=== PATIENT | female | born 1930 | race Caucasian/White ===

== ENCOUNTER → 2017-05-08 | Outpatient (CLI) | payer MEDICARE, OTHER ==
[~2017-05-08] MED LIST: AMITRIPTYLINE H25 M1 PO; ANTIVERT 25MG25 MG PO; BIO FREEZE TP; CELEBREX 200MG200 MG PO; CLOPIDOGREL PO; COZAAR 50MG50 MG/TAB PO; FLONASE NASAL S16 GM NS; GLUCOPHAGE500 MG/TAB PO; LASIX 40MG TABL40 MG PO; LEVOTHYROXINE0.1 MG PO; LEVOTHYROXINE0.2 MG PO; MIRAPEX1.5 MG PO; MUCINEX 60600 MG/TA1 PO; MVI PO; NEXIUM 40MG40 MG PO; NEXIUM40 MG PO; NORMODYNE200 MG PO; OGEN 0.625MG0.625 MG PO; PAMELOR 10MG10 MG PO; SEPTRA DS 8001 TAB PO; SINGULAIR10 MG PO; SYNTHROID0.125 MG/T PO; TYLENOL 500MG500 MG PO; ULTRAM 50MG TAB50 MG PO; VITA PULSE PO; ZITHROMAX 250M250 MG PO; ZOFRAN 4MG T4 MG/TAB PO; ZYRTEC 10MG10 MG PO; [UNRECOGNIZED DRUG - OTHER]
== END ==
LOC: COL.RAD 07:36
DX: K21.9 Gastro-esophageal reflux disease without esophagitis (principal); K44.9 Diaphragmatic hernia without obstruction or gangrene
CPT/HCPCS: A9541

== ENCOUNTER 2020-03-12 18:09 | Emergency (ER) | payer MEDICARE ==
[~2020-03-12] VITALS: Ht 165.1 cm; Wt 100.0 kg
[2020-03-12 18:13] VITALS: TEMP 99.1
[2020-03-12] MEDS ORDERED: LIDODERM 5% PATC1 EA TP (19:19)
[2020-03-12 20:00] VITALS: BP 164/82; PULSE 79
== END 2020-03-12 20:00 | disposition home or self-care (01) ==
LOC: COL.ER 18:09
DX: M25.511 Pain in right shoulder (principal); Z90.710 Acquired absence of both cervix and uterus; Z88.1 Allergy status to other antibiotic agents; Z88.6 Allergy status to analgesic agent; Z88.8 Allergy status to other drugs, medicaments and biological substances; Z79.891 Long term (current) use of opiate analgesic; Z79.84 Long term (current) use of oral hypoglycemic drugs; Z79.890 Hormone replacement therapy

== ENCOUNTER 2021-03-20 03:45 | Inpatient (IN) | payer MEDICARE, OTHER ==
[~2021-03-20] VITALS: Ht 165.1 cm; Wt 87.9 kg
[~2021-03-20 03:45] MED LIST changes: +LIDODERM 5% PATC1 EA TP
[2021-03-20 04:24] LABS: COLLECTION METHOD CLEAN CATCH
[2021-03-20 04:45] LABS: ALBUMIN 3.5 gm/dL (3.4-4.8); BILIRUBIN,TOTAL 0.6 mg/dL (0.2-1.2); CALCIUM 9.2 mg/dL (8.4-10.2); CREATININE, serum 1.39 mg/dL (0.57-1.11); POTASSIUM 4.2 mmol/L (3.5-4.5); TOTAL PROTEIN 7.2 gm/dL (6.2-8.1)
[2021-03-20 04:46] LABS: BASO # 0.1 K/mm3 (0.0-0.2); BASO % 0.6 % (0.0-2.0); EOS # 0.2 K/mm3 (0.0-0.7); EOS % 2.1 % (0.0-4.0); GRAN # 7.9 K/mm3 (1.4-6.5); GRAN % 82.5 % (42.2-75.2); HEMOGLOBIN 10.6 g/dl (12.5-16.0); LYMPH # 0.8 K/mm3 (1.2-3.4); LYMPH % 8.6 % (20.0-51.0); MEAN CELL VOLUME 88 fl (80.0-100.0); MEAN CORPUSCULAR HEMOGLOBIN 29 pg (27-31); MEAN CORPUSCULAR HGB CONC 33 g/dl (33.0-37.0); MEAN PLATELET VOLUME 10.3 fl (7.4-10.4); MONO # 0.6 K/mm3 (0.1-0.6); MONO % 5.9 % (1.7-9.3); PLATELET COUNT 286 K/mm3 (130-400); RED BLOOD COUNT 3.64 M/mm3 (4.10-5.30); REDCELL DISTRIBUTION WIDTH-CV 14.5 % (11.5-14.5)
[2021-03-20 04:48] LABS: HEMATOCRIT 31.9 % (37.0-47.0)
[2021-03-20 04:51] LABS: TROPONIN-I 0.014 ng/mL (0.00-0.033)
[2021-03-20 04:55] LABS: BUDDING YEAST Present (NOT PRESENT); PH 8 (5-8); SQUAMOUS EPITHELIAL 0-2 /hpf (0-10); URINE APPEARANCE Hazy (CLEAR/HAZY); URINE BACTERIA Many /hpf (NONE SEEN); URINE BILIRUBIN Negative (NEGATIVE); URINE BLOOD Negative (NEGATIVE); URINE COLOR Straw (YELLOW); URINE GLUCOSE Negative (NEGATIVE); URINE KETONE Negative (NEGATIVE); URINE LEUKOCYTE ESTERASE 2+ (NEGATIVE); URINE NITRATE Negative (NEGATIVE); URINE PROTEIN(semi-quant) 1+ (NEGATIVE); URINE UROBILINOGEN Negative (NEGATIVE)
--- NOTE | 2021-03-20 06:15 | NUR ---
Up from ER at this time, Vitals taken, o2 at 3L/nc with sats 100%, states has a headache, alert/oriented, Jennyfer PA in room, talking with patient.
[2021-03-20] MEDS ORDERED: INCRUSE EL62.5 MCG/A IH (06:16)
[2021-03-20] MEDS ORDERED: 00186-0370-20 IH ×2 (06:16→08:38)
[2021-03-20 06:18] VITALS: BP 192/75; PULSE 77; TEMP 97.9
[2021-03-20] MEDS ORDERED: PROTONIX 40MG T40 MG PO (06:19)
--- NOTE | 2021-03-20 07:00 | NUR ---
Report received from BETH Kay. PT in bed resting, doing well, will conitnue to monitor.
[2021-03-20 08:00] VITALS: BP 182/65; PULSE 76; TEMP 98.9
[2021-03-20] MEDS ORDERED: GLUCOPHAGE1000 MG PO (08:35)
[2021-03-20] MEDS ORDERED: ROXICODONE 55 MG/TAB PO (08:36)
[2021-03-20] MEDS ORDERED: TRIAM OI 0.1 80 TOP (08:36)
[2021-03-20] MEDS ORDERED: GLUCOTROL XL5 MG/TAB PO (08:37)
[2021-03-20] MEDS ORDERED: COZAAR 25MG25 MG/TAB PO (08:38)
--- NOTE | 2021-03-20 09:36 | NUR ---
Initial visit; Rosy states that she needs prayer and that she isn't ready to give up just yet. Criminal Justice Lawyer offered comfort, encouragement and prayer for Rosy and will follow up while she is our patient.
--- NOTE | 2021-03-20 09:56 | NUR ---
maintenance worker swimming pool met with patient to discuss discharge plan. Patient reports that she lives at home alone here in [place]. She reports that she is independent with her activities of daily living and utilizes both a walker and electric scooter to ambulate. She reports to having no oxygen needs at home, however is currently on 2-3L in room. PCP is Dr. Mathieu Coronel and she uses both [facility] through her insurance and [facility] pharmacy for medications with no cost difficulty. Patient reports that she does have a DPOA-HC established listing her 3 children, however [facility] ([phone]) is the closest. Patient reports that once she is medically ready, she would like to return home. Discharge plan: Home* pending PT/OT rec's
--- NOTE | 2021-03-20 10:00 | NUR ---
Assessment charted. Pt sleepy, able to arouse easily but falls asleep between disturbances. Did med rec per meds picked up and delivered from pharmacy. Denies needs, will conitnue to monitor.
[2021-03-20 12:00] VITALS: BP 153/57; PULSE 69; TEMP 98.2
[2021-03-20 15:18] LABS: ARTERIAL BLD GAS O2 SATURATION 96.5 % (92-100); ARTERIAL BLD GAS TCO2 CT 27.3; ARTERIAL BLOOD GAS BASE EXCESS 2.1 (-2-2); ARTERIAL BLOOD GAS HCO3 26.2 meq/L (22-26); ARTERIAL BLOOD GAS PCO2 38.5 mmHg (35-45); ARTERIAL BLOOD GAS pH 7.45 (7.35-7.45)
[2021-03-20 16:00] VITALS: BP 113/44; PULSE 71; TEMP 97.9
--- NOTE | 2021-03-20 18:29 | NUR ---
Pt resting often today, per pt she hasn't been able to sleep well much of day but then able to rest here, per family pt falls asleep constantly and is unable to stay awake most of time at home. Urine per purewick and working well. Does not want love at this time. Denies needs, will give report to nightshift nurse who will resume care.
[2021-03-20 20:05] VITALS: BP 121/43; PULSE 73; TEMP 97.9
--- NOTE | 2021-03-20 22:22 | NUR ---
Patient assessed around 2039. Alert and oriented. Denied pain at that time, but did complain of pain to knees and given PRN Roxicodone around 2199. Peripheral INT to left AC. Given IV Lasix per orders. Did ambulate to bathroom. Wanted purewick to be left in during the night and placed as requested. Urine clear and yellow. When patient was in bathroom, checked bedscale to see if it was "0" empty, and it was not. Zeroed bed and new weight obtained and documented after patient got in bed. Continues on oxygen at 2 L/min via NC. Denies SOB and dyspnea. LS CTA in upper lobes, diminished in lower. HRR. Telemetry in place, normal sinus. 2+ edema BLE. Redness/warmth continues. Old bruising to thighs. Voices no questions, needs, or concerns at this time. In bed with call light within reach.
[2021-03-21] VITALS: BP 119/40; PULSE 69; TEMP 97.8
[2021-03-21 04:43] VITALS: BP 120/44; PULSE 77; TEMP 98.1
--- NOTE | 2021-03-21 05:18 | NUR ---
Patient has been complaining of pain to left knee. Given PRN Roxicodone. Patient tearful with facial grimacing afterwards. Kpad applied, and called LESTER Burger. New order for Morphine, and given per orders. Patient reports knee feeling better this morning. Voices no further questions, needs, or concerns at this time. In bed with call light within reach. Bed alarm on.
[2021-03-21 06:33] LABS: BASO # 0.1 K/mm3 (0.0-0.2); BASO % 0.5 % (0.0-2.0); EOS # 0.2 K/mm3 (0.0-0.7); EOS % 1.7 % (0.0-4.0); GRAN # 7.4 K/mm3 (1.4-6.5); GRAN % 76.5 % (42.2-75.2); LYMPH # 1.1 K/mm3 (1.2-3.4); LYMPH % 11.6 % (20.0-51.0); MEAN CELL VOLUME 88 fl (80.0-100.0); MEAN CORPUSCULAR HGB CONC 33 g/dl (33.0-37.0); MEAN PLATELET VOLUME 10.2 fl (7.4-10.4); MONO # 0.9 K/mm3 (0.1-0.6); MONO % 9.2 % (1.7-9.3); PLATELET COUNT 286 K/mm3 (130-400); RED BLOOD COUNT 3.28 M/mm3 (4.10-5.30); REDCELL DISTRIBUTION WIDTH-CV 14.6 % (11.5-14.5)
[2021-03-21 06:51] LABS: HEMATOCRIT 28.8 % (37.0-47.0); HEMOGLOBIN 9.5 g/dl (12.5-16.0); MEAN CORPUSCULAR HEMOGLOBIN 29 pg (27-31)
[2021-03-21 06:56] LABS: CALCIUM 8.6 mg/dL (8.4-10.2); CREATININE, serum 1.74 mg/dL (0.57-1.11); POTASSIUM 3.5 mmol/L (3.5-4.5)
--- NOTE | 2021-03-21 07:00 | NUR ---
Report received from JOAQUIN Kent. PT in bed resting, states she had painful night and both knees are hurting.
[2021-03-21 07:42] VITALS: BP 135/45; PULSE 76; TEMP 97.8
--- NOTE | 2021-03-21 08:51 | NUR ---
Assessment charted. Called hospitalist because moises pt in room c/o severe 10/10 unrelenting knee pain bilaterally. States she has never had this pain before and nothing is helping, kpads on knees, pain meds po and IV not helping and moaning continuously. Hospitalist aware and will see her first. Knees are warm, legs appear unchanged in appearance from day before. Pt is unable to tell me month and day of week and unable to tell me what town we are in today. Will continue to monitor.
--- NOTE | 2021-03-21 09:30 | NUR ---
Follow-up visit; Rosy in a great deal of pain. Nurse looking into her change in health issues. Textiles Sales Representative offered prayer and will continue to look in on Rosy.
--- NOTE | 2021-03-21 12:11 | NUR ---
PT continues to be extremeley uncomfortable, unrelenting pain and no relief from any effort thus far.
[2021-03-21 12:40] VITALS: BP 128/46; PULSE 75; TEMP 97.9
[2021-03-21 16:30] VITALS: BP 121/45; PULSE 78; TEMP 97.9
--- NOTE | 2021-03-21 18:45 | NUR ---
Pt has become increasingly confused over shift. REsting in bed but often times upon staff entry we find the pt in bed naked and has removed telemetry. When asked why pt has done this she esponds "i don't know". Moved to a closer room. Denies needs, PRN carine nmeds given over shift. Will give report to nightshift nurse who buzz lresume care.
[2021-03-21 20:15] VITALS: BP 142/52; PULSE 81; TEMP 98.2
--- NOTE | 2021-03-21 21:00 | NUR ---
Patient is resting in bed watching TV. Alert and oriented x 4. Unable to have her dinner. She continously gets back to sleep. Telemetry in place, NSR. 1L O2 NC. Continues with tolerable pain in her knees. Assessment completed, medications provided. No further needs at this time. Call light within reach.
[2021-03-22 00:04] VITALS: BP 125/54; PULSE 81; TEMP 97.5
[2021-03-22 04:10] VITALS: BP 122/66; PULSE 78; TEMP 98.1
--- NOTE | 2021-03-22 06:16 | NUR ---
Patient had an uneventful night. She did not ask for pain medication. Report will be given to day RN.
[2021-03-22 06:41] LABS: BASO % 0.3 % (0.0-2.0); GRAN # 9.4 K/mm3 (1.4-6.5); LYMPH # 0.8 K/mm3 (1.2-3.4); LYMPH % 7.1 % (20.0-51.0); MEAN CELL VOLUME 90 fl (80.0-100.0); MEAN CORPUSCULAR HGB CONC 33 g/dl (33.0-37.0); MEAN PLATELET VOLUME 10.6 fl (7.4-10.4); MONO # 1.4 K/mm3 (0.1-0.6); MONO % 12.1 % (1.7-9.3); PLATELET COUNT 293 K/mm3 (130-400); RED BLOOD COUNT 3.36 M/mm3 (4.10-5.30); REDCELL DISTRIBUTION WIDTH-CV 14.5 % (11.5-14.5)
[2021-03-22 06:45] LABS: CALCIUM 8.9 mg/dL (8.4-10.2); CREATININE, serum 2.1 mg/dL (0.57-1.11); POTASSIUM 3.8 mmol/L (3.5-4.5)
[2021-03-22 07:13] LABS: HEMATOCRIT 30.2 % (37.0-47.0); HEMOGLOBIN 9.9 g/dl (12.5-16.0); MEAN CORPUSCULAR HEMOGLOBIN 29 pg (27-31)
[2021-03-22 07:40] VITALS: BP 114/39; PULSE 72; TEMP 98.1
--- NOTE | 2021-03-22 07:53 | NUR ---
Patient sitting up in bed watching TV. A&Ox4. VSS IV CDI. Denies pain and discomfort. Nurse ordered breakfast for the patient. No further needs expressed. Call light within reach. Bed alarm on
--- NOTE | 2021-03-22 10:32 | NUR ---
Follow-up visit; Patient thanked Structural Analysis Engineer for helping with her breakfast tray and for visiting. She is feeling better today.
[2021-03-22 12:21] VITALS: BP 143/78; PULSE 72; TEMP 97.8
--- NOTE | 2021-03-22 15:55 | NUR ---
receiving worker spoke with the patient about the need to SNF care post discharge. Patient is not happy about this but is open to going to [facility] because she has done therapy there in the past. SNF referrals sent to [facility] and [facility]. Discharge plan: SNF- referrals pending.
[2021-03-22 16:00] VITALS: BP 135/51; PULSE 78; TEMP 98.1
[2021-03-22 16:42] LABS: SYNOVIAL FLUID WBC 84970 /mm3 (200-600)
[2021-03-22 16:45] LABS: SYNOVIAL FLUID RBC 10000 /mm3 (0-0)
--- NOTE | 2021-03-22 17:32 | NUR ---
Patient sitting up in bed, A&Ox4. VSS, no reported SOB. IV CDI. Patient received injections into both knees by LESTER Herrera and patient tolerated well. States that the pain in her knees feels better. Denies any additional pain. No further needs expressed. Call light within reach. Bed alarm on
[2021-03-22 18:05] LABS: SYNOVIAL FLUID APPEARANCE TURBID; SYNOVIAL FLUID COLOR YELLOW
[2021-03-22 19:47] VITALS: BP 138/43; PULSE 73; TEMP 98
--- NOTE | 2021-03-22 20:20 | NUR ---
Patient is sitting in bed, sleeping, easily arousable. Alert and oriented. Denies pain. Telemetry in place, at . Assessment completed, medications provided. No other needs at this time. Call light within reach.
[2021-03-23] VITALS (7 sets, daily range): BP systolic 142–178; BP diastolic 55–65; PULSE 69–76; TEMP 97.4–98.5
[2021-03-23 05:50] LABS: MEAN CELL VOLUME 89 fl (80.0-100.0); MEAN CORPUSCULAR HEMOGLOBIN 29 pg (27-31); MEAN CORPUSCULAR HGB CONC 32 g/dl (33.0-37.0); MEAN PLATELET VOLUME 10.6 fl (7.4-10.4); PLATELET COUNT 303 K/mm3 (130-400); RED BLOOD COUNT 3.48 M/mm3 (4.10-5.30); REDCELL DISTRIBUTION WIDTH-CV 14.3 % (11.5-14.5)
[2021-03-23 06:05] LABS: CALCIUM 9.1 mg/dL (8.4-10.2); CREATININE, serum 1.82 mg/dL (0.57-1.11); POTASSIUM 4.2 mmol/L (3.5-4.5)
--- NOTE | 2021-03-23 06:32 | NUR ---
Patient has had a calm night. Her BP has been high but systolic no more than 170. All needs met. Report will be given to day RN.
[2021-03-23 08:10] LABS: BAND 2 % (0-10); LYMPHOCYTE 2 % (20.0-51.0); NEUTROPHILS 91 % (42.0-75.2); PLATELET ESTIMATE NORMAL (NORMAL)
--- NOTE | 2021-03-23 08:15 | NUR ---
Shift assessment complete. Pt sitting up in bed eating breakfast, A&Ox4. Heart RRR. Lungs CTA. Mild swelling and redness to BLE. Bandaids to knees bilaterally, sites CDI. Denies pain or SOA. Denies further needs. Call light in reach.
--- NOTE | 2021-03-23 09:15 | NUR ---
Follow-up visit; It's pleasing to see Rosy doing so much better. She states having the fluid drained from her leg has helped immensely. General Assistant wished her a wonderful recovery and offered God's blessings.
--- NOTE | 2021-03-23 16:40 | NUR ---
Flavia with [facility] advises that the earliest they would be able to accept this patient is Friday.
[2021-03-23 21:44] LABS: CALCIUM 9.2 mg/dL (8.4-10.2); CREATININE, serum 1.74 mg/dL (0.57-1.11); POTASSIUM 4.7 mmol/L (3.5-4.5)
--- NOTE | 2021-03-23 22:43 | NUR ---
Patient assessed around 2124. Patient's BS had been 416. Called to ISHAN Quezada. New orders received. Given insulin per orders. Denied pain and discomfort at time of assessment. Voices no questions, needs, or concerns at this time. In bed with call light within reach. Bed alarm on.
[2021-03-24 04:13] VITALS: BP 151/56; PULSE 74; TEMP 97.7
--- NOTE | 2021-03-24 05:17 | NUR ---
Patient has denied pain and discomfort this shift. BS around midnight was 248. Updated ISHAN Quezada at that time. Due to patient wanting snack, sliding scale given at that time per Pilar. Voices no further questions, needs, or concerns this shift. In bed with call light within reach. Bed alarm on.
[2021-03-24 08:18] VITALS: BP 156/58; PULSE 66; TEMP 97.6
--- NOTE | 2021-03-24 08:50 | NUR ---
Shift assessment complete. Pt resting in bed. A&Ox4. Heart RRR. Lungs CTA. Reports stiffness in knees that is "uncomfortable" but declines PRN meds. Assisted pt to restroom x1A w/walker. Full bed change done and purewick replaced once back in bed. Pt denies needs at this time. Call light in reach.
[2021-03-24 09:06] LABS: BASO % 0.1 % (0.0-2.0); GRAN # 6.6 K/mm3 (1.4-6.5); GRAN % 88.2 % (42.2-75.2); HEMOGLOBIN 10.7 g/dl (12.5-16.0); LYMPH # 0.5 K/mm3 (1.2-3.4); LYMPH % 6.6 % (20.0-51.0); MEAN CELL VOLUME 88 fl (80.0-100.0); MEAN CORPUSCULAR HEMOGLOBIN 29 pg (27-31); MEAN CORPUSCULAR HGB CONC 33 g/dl (33.0-37.0); MONO # 0.4 K/mm3 (0.1-0.6); MONO % 4.7 % (1.7-9.3); PLATELET COUNT 340 K/mm3 (130-400); RED BLOOD COUNT 3.72 M/mm3 (4.10-5.30); REDCELL DISTRIBUTION WIDTH-CV 14.1 % (11.5-14.5)
[2021-03-24 09:09] LABS: HEMATOCRIT 32.6 % (37.0-47.0)
[2021-03-24 09:29] LABS: CALCIUM 9.4 mg/dL (8.4-10.2); CREATININE, serum 1.45 mg/dL (0.57-1.11); POTASSIUM 4.6 mmol/L (3.5-4.5)
[2021-03-24 11:48] VITALS: BP 156/57; PULSE 65; TEMP 97.7
--- NOTE | 2021-03-24 12:29 | NUR ---
Vancomycin Initial Dosing Pharmacy Note Ordering provider: Chary Nicholas DO Indication/duration: Bone/joint infection, 5 days LABS: SCr 1.45, CrCl~26, GFR 34 Recommendation: Vancomcyin 1 gm (~15 mg/kg based on adjusted body weight) IV q24h. Pharmacy will continue to closely monitor and check a Vancomycin trough prior to the 4th dose. Loading dose: 2 grams Maintenance dose: 1 gram every 24 hours Trough goal: 15-20 ug/mL
--- NOTE | 2021-03-24 14:30 | NUR ---
Report given to Ora NUÑEZ who will assume care of pt at this time.
--- NOTE | 2021-03-24 14:30 | NUR ---
This RN received report from Wilmer and will resume care of the patient.
[2021-03-24 16:31] VITALS: BP 147/49; PULSE 72; TEMP 98
[2021-03-24 19:51] VITALS: BP 161/56; PULSE 69; TEMP 97.4
--- NOTE | 2021-03-24 21:05 | NUR ---
Patient assessed around 2024. Alert and oriented x 4, and able to make needs known. Denies having pain and discomfort at this time. Peripheral INT to right forearm. Denies SOB and dyspnea. LS CTA. HRR. Telemetry in place. Capillary refill less than 3 seconds. Non-tenting skin turgor. BSAx4. Abdomen soft and non-tender. No edema. Voices no questions, needs, or concerns at this time. In bed with call light within reach. Bed alarm on.
[2021-03-24 23:54] VITALS: BP 142/55; PULSE 66; TEMP 97.9
[2021-03-25] VITALS (7 sets, daily range): BP systolic 115–184; BP diastolic 50–70; PULSE 62–100; TEMP 97.7–98.6
--- NOTE | 2021-03-25 05:52 | NUR ---
Patient has been awake on and off most of shift. Denies pain and discomfort. Voices no questions, needs, or concerns at this time. In bed with call light within reach.
[2021-03-25 06:55] LABS: CALCIUM 8.9 mg/dL (8.4-10.2); CREATININE, serum 1.46 mg/dL (0.57-1.11); POTASSIUM 5.2 mmol/L (3.5-4.5)
--- NOTE | 2021-03-25 09:14 | NUR ---
PT ASSESSED. NO COMPLAINTS OF PAIN OR DYSPNEA. NO SIGNS OR SYMPTOMS OF DSITRESS. CALL LIGHT WITHIN REACH.
[2021-03-26 03:45] VITALS: BP 161/50; PULSE 76; TEMP 98.3
--- NOTE | 2021-03-26 05:23 | NUR ---
PT HAD UNEVENTFUL NIGHT, NO CLINICAL CHANGES OVER NIGHT, BP SYSTOLIC REMAINS ELEVATED, PT REPORTS PAIN 8/10 MAJORITY OF THE TIME FOR HER BILAT. KNEES. MEDICAITON ADMINISTERED ORDERED, INSULIN ADMINISTERED ORDERED. ALL NEEDS MET THIS SHIFT. CALL LIGHT WITHIN REACH.
[2021-03-26 06:50] LABS: CALCIUM 8.8 mg/dL (8.4-10.2); CREATININE, serum 1.49 mg/dL (0.57-1.11); POTASSIUM 5.6 mmol/L (3.5-4.5)
[2021-03-26 07:20] LABS: HEMOGLOBIN 10.4 g/dl (12.5-16.0); MEAN CELL VOLUME 87 fl (80.0-100.0); MEAN CORPUSCULAR HEMOGLOBIN 29 pg (27-31); MEAN CORPUSCULAR HGB CONC 33 g/dl (33.0-37.0); PLATELET COUNT 320 K/mm3 (130-400); RED BLOOD COUNT 3.64 M/mm3 (4.10-5.30)
[2021-03-26 07:37] LABS: HEMATOCRIT 31.8 % (37.0-47.0)
[2021-03-26 07:46] VITALS: BP 152/57; PULSE 67; TEMP 97.7
--- NOTE | 2021-03-26 10:07 | NUR ---
Pt assessment complete. Pt is sitting up in the recliner upon entry, she is A/O x4. Just completed a shower. She denies any pain, but requests pain patches to be placed on bilateral shoulders today. Denies SOB. No N/V. No further needs at this time. Call light within reach.
--- NOTE | 2021-03-26 10:21 | NUR ---
Follow-up visit; Patient doing well. She seems glad to have come in and wave and say "hi."
[2021-03-26 11:21] VITALS: BP 152/51; PULSE 61; TEMP 97.5
--- NOTE | 2021-03-26 15:33 | NUR ---
Nuclear Pharmacist faxed clinical updates to [facility] and [place] [facility]. Flavia at [facility] advised they can accept patient. GABRIELE advised Flavia that per Hospitalist, patient will be ready for discharge tomorrow. GABRIELE met with patient to follow up on discharge plan. Patient states she is agreeable with discharge to [facility] tomorrow as she has been there before. GABRIELE also contacted patient's son, Jamari to provide update on discharge plan. Discharge Plan: [facility]
[2021-03-26 16:27] VITALS: BP 149/51; PULSE 66; TEMP 98.1
[2021-03-26 19:42] VITALS: BP 147/44; PULSE 66; TEMP 97.3
[2021-03-26 23:59] VITALS: BP 150/53; PULSE 67; TEMP 97.8
[2021-03-27 03:22] VITALS: BP 154/48; PULSE 65; TEMP 97.6
[2021-03-27 07:00] LABS: HEMOGLOBIN 10.3 g/dl (12.5-16.0); MEAN CELL VOLUME 89 fl (80.0-100.0); MEAN CORPUSCULAR HEMOGLOBIN 29 pg (27-31); MEAN CORPUSCULAR HGB CONC 32 g/dl (33.0-37.0); MEAN PLATELET VOLUME 11.1 fl (7.4-10.4); PLATELET COUNT 320 K/mm3 (130-400); RED BLOOD COUNT 3.59 M/mm3 (4.10-5.30)
[2021-03-27 07:02] LABS: HEMATOCRIT 31.8 % (37.0-47.0)
[2021-03-27 07:22] LABS: CREATININE, serum 1.25 mg/dL (0.57-1.11); POTASSIUM 5.3 mmol/L (3.5-4.5)
--- NOTE | 2021-03-27 07:49 | NUR ---
NO NEW CHANGES OVERNIGHT, ALL NEEDS MET THIS SHIFT. CALL LIGHT WITHIN REACH.
[2021-03-27 07:56] LABS: BAND 1 % (0-10); EOSINOPHIL 1 % (0-4); LYMPHOCYTE 14 % (20.0-51.0); NEUTROPHILS 80 % (42.0-75.2); PLATELET ESTIMATE NORMAL (NORMAL)
--- NOTE | 2021-03-27 08:00 | NUR ---
PT PLEASANT, AOX4, REPORTS PAIN IN NARINDER KNEES 2/, DENIES N/V/D. ASSESSMENT PERFORMED, MEDICATIONS GIVEN, REPORTED TENDERNESS IN ABD WITH HEPARIN INJECTIONS, ATE 100% BREAKFAST, NO OTHER NEEDS
[2021-03-27 08:08] VITALS: BP 153/60; PULSE 68; TEMP 97.7
[2021-03-27 09:03] VITALS: BP 154/49; PULSE 62; TEMP 98
[2021-03-27] MEDS ORDERED: COREG12.5 MG PO (11:30)
[2021-03-27] MEDS ORDERED: LEVEMIR100 U/ML SQ (11:30)
[2021-03-27] MEDS ORDERED: ROXICODONE 55 MG/TAB PO (11:30)
[2021-03-27] MEDS ORDERED: NORVASC 10MG10 MG PO (11:30)
[2021-03-27] MEDS ORDERED: NOVOLOG 100U100 U/M1 SQ (11:31)
[2021-03-27 11:50] VITALS: BP 159/59; PULSE 62; TEMP 98
--- NOTE | 2021-03-27 13:11 | NUR ---
report called to [facility], IV removed, pt dressed and ready to discharge.
--- NOTE | 2021-03-27 13:55 | NUR ---
Patient is ready to be discharged today to [facility]. R D Manager faxed clinical updates to Flavia at [facility] who advised they are able to accept patient today. SW set transport time for 1330. SW met with patient to provide transport time. Patient was concerned that her walker was at home and SW advised that [facility] would have a walker she can use. GABRIELE faxed discharge orders and negative covid results to Flavia at [facility]. GABRIELE also contacted patient's son, Jamari and provided discharge time. Discharge Plan: [facility] today
--- NOTE | 2021-03-27 14:00 | NUR ---
PT ESCORTED OUT VIA WHEELCHAIR WITH PT BELONGINGS AND PT PAPERWORK
== END 2021-03-27 14:00 | DRG 292 ==
LOC: COL.ER 03:45 → MEDICAL 05:09
PROVIDERS: Nurse Practitioner; Nurse Practitioner Family; Physician Assistant; Student in an Organized Health Care Education/Training Program; ADMIT Internal Medicine
PROC: 0S9D3ZZ Drainage of Left Knee Joint, Percutaneous Approach (ICD-10-PCS; principal; 2021-03-22)
PROC: 0S9C3ZZ Drainage of Right Knee Joint, Percutaneous Approach (ICD-10-PCS; 2021-03-22)
PROC: 3E0U33Z Introduction of Anti-inflammatory into Joints, Percutaneous Approach (ICD-10-PCS; 2021-03-22)
PROC: 3E0U3BZ Introduction of Anesthetic Agent into Joints, Percutaneous Approach (ICD-10-PCS; 2021-03-22)
DX: I11.0 Hypertensive heart disease with heart failure (principal); N39.0 Urinary tract infection, site not specified; N17.9 Acute kidney failure, unspecified; I50.9 Heart failure, unspecified; J44.9 Chronic obstructive pulmonary disease, unspecified; E03.9 Hypothyroidism, unspecified; E11.65 Type 2 diabetes mellitus with hyperglycemia; I08.1 Rheumatic disorders of both mitral and tricuspid valves; Z66 Do not resuscitate; M17.0 Bilateral primary osteoarthritis of knee; M25.461 Effusion, right knee; E87.5 Hyperkalemia; E87.70 Fluid overload, unspecified; K21.9 Gastro-esophageal reflux disease without esophagitis; G25.81 Restless legs syndrome; R53.81 Other malaise; Z20.822 Contact with and (suspected) exposure to COVID-19; Z90.710 Acquired absence of both cervix and uterus; Z79.891 Long term (current) use of opiate analgesic; Z79.84 Long term (current) use of oral hypoglycemic drugs; Z88.5 Allergy status to narcotic agent; Z88.0 Allergy status to penicillin; Z88.8 Allergy status to other drugs, medicaments and biological substances
CPT/HCPCS: 99223-AI; 99233-AI; 99239; J0360; J0696; J1644; J1815; J1940; J2270; J3301; J3370; J7040; J7050; J7512

== ENCOUNTER → 2021-04-04 | Outpatient (REF) | payer MEDICARE, OTHER ==
[~2021-04-04] MED LIST changes: +00186-0370-20 IH; +COREG12.5 MG PO; +COZAAR 25MG25 MG/TAB PO; +GLUCOPHAGE1000 MG PO; +GLUCOTROL XL5 MG/TAB PO; +INCRUSE EL62.5 MCG/A IH; +LEVEMIR100 U/ML SQ; +NORVASC 10MG10 MG PO; +NOVOLOG 100U100 U/M1 SQ; +PROTONIX 40MG T40 MG PO; +ROXICODONE 55 MG/TAB PO; +TRIAM OI 0.1 80 TOP
[2021-04-04 14:58] LABS: CALCIUM 8.6 mg/dL (8.4-10.2); CREATININE, serum 1.48 mg/dL (0.57-1.11); POTASSIUM 4.6 mmol/L (3.5-4.5)
== END ==
LOC: ZCOL.LAB 13:18
PROVIDERS: Internal Medicine
DX: I50.32 Chronic diastolic (congestive) heart failure (principal)

== ENCOUNTER 2021-09-10 15:02 | Emergency (ER) | payer MEDICARE, OTHER ==
[~2021-09-10] VITALS: Ht 165.1 cm; Wt 81.8 kg
[2021-09-10 15:04] VITALS: TEMP 97.8
[2021-09-10 15:48] LABS: BASO # 0.1 K/mm3 (0.0-0.2); BASO % 0.7 % (0.0-2.0); EOS # 0.2 K/mm3 (0.0-0.7); EOS % 2.8 % (0.0-4.0); GRAN # 6.3 K/mm3 (1.4-6.5); GRAN % 76.4 % (42.2-75.2); MEAN CELL VOLUME 88 fl (80.0-100.0); MEAN CORPUSCULAR HEMOGLOBIN 29 pg (27-31); MEAN CORPUSCULAR HGB CONC 33 g/dl (33.0-37.0); MEAN PLATELET VOLUME 9.9 fl (7.4-10.4); MONO # 0.6 K/mm3 (0.1-0.6); MONO % 7.6 % (1.7-9.3); PLATELET COUNT 293 K/mm3 (130-400); REDCELL DISTRIBUTION WIDTH-CV 14.5 % (11.5-14.5)
[2021-09-10 16:12] LABS: ALBUMIN 2.9 gm/dL (3.4-4.8); BILIRUBIN,TOTAL 0.2 mg/dL (0.2-1.2); CALCIUM 8.8 mg/dL (8.4-10.2); CREATININE, serum 1.78 mg/dL (0.57-1.11); POTASSIUM 3.8 mmol/L (3.5-4.5); TOTAL PROTEIN 6.5 gm/dL (6.2-8.1)
[2021-09-10 16:35] LABS: TROPONIN-I 0.01 ng/mL (0.00-0.033); TSH w REFLEX 1.247 uIU/mL (0.350-4.940)
[2021-09-10] MEDS ORDERED: ZOFRAN ODT4 MG PO ×2 (17:23)
[2021-09-10] MEDS ORDERED: PROTONIX 40MG T40 MG PO (17:31)
[2021-09-10] MEDS ORDERED: BACTRIM DS 8001 TAB PO (17:31)
[2021-09-10] MEDS ORDERED: MIRAPEX1.5 MG PO (17:31)
[2021-09-10 18:02] LABS: COLLECTION METHOD CLEAN CATCH
[2021-09-10 18:13] LABS: PH 6 (5-8); SQUAMOUS EPITHELIAL 0-2 /hpf (0-10); URINE APPEARANCE Clear (CLEAR/HAZY); URINE BACTERIA Moderate /hpf (NONE SEEN); URINE BLOOD Negative (NEGATIVE); URINE COLOR Straw (YELLOW); URINE GLUCOSE Negative (NEGATIVE); URINE KETONE Negative (NEGATIVE); URINE NITRATE Negative (NEGATIVE); URINE PROTEIN(semi-quant) Negative (NEGATIVE); URINE RBC 0-2 /hpf (0-2); URINE UROBILINOGEN Negative (NEGATIVE)
[2021-09-10 18:15] VITALS: BP 119/91; PULSE 78
== END 2021-09-10 18:15 | disposition home or self-care (01) ==
LOC: COL.ER 15:02
PROVIDERS: Emergency Medicine
DX: R53.81 Other malaise (principal); R79.89 Other specified abnormal findings of blood chemistry; Z20.822 Contact with and (suspected) exposure to COVID-19

== ENCOUNTER 2021-09-14 21:50 | Observation (INO) | payer MEDICARE, OTHER ==
[~2021-09-14] VITALS: Ht 165.1 cm; Wt 83.4 kg
[~2021-09-14 21:50] MED LIST changes: +BACTRIM DS 8001 TAB PO; +ZOFRAN ODT4 MG PO
[2021-09-14 22:34] LABS: COLLECTION METHOD CLEAN CATCH
[2021-09-14 22:44] LABS: PH 6 (5-8); SQUAMOUS EPITHELIAL 0-2 /hpf (0-10); URINE APPEARANCE Clear (CLEAR/HAZY); URINE BACTERIA None Seen /hpf (NONE SEEN); URINE BLOOD Negative (NEGATIVE); URINE COLOR Straw (YELLOW); URINE GLUCOSE Negative (NEGATIVE); URINE KETONE Negative (NEGATIVE); URINE NITRATE Negative (NEGATIVE); URINE PROTEIN(semi-quant) Negative (NEGATIVE); URINE RBC 0-2 /hpf (0-2); URINE UROBILINOGEN Negative (NEGATIVE)
[2021-09-14 22:46] LABS: BASO # 0.1 K/mm3 (0.0-0.2); BASO % 0.5 % (0.0-2.0); EOS # 0.1 K/mm3 (0.0-0.7); EOS % 1.1 % (0.0-4.0); GRAN # 8.7 K/mm3 (1.4-6.5); GRAN % 83.4 % (42.2-75.2); HEMOGLOBIN 10.5 g/dl (12.5-16.0); LYMPH # 0.8 K/mm3 (1.2-3.4); LYMPH % 7.4 % (20.0-51.0); MEAN CELL VOLUME 88 fl (80.0-100.0); MEAN CORPUSCULAR HEMOGLOBIN 30 pg (27-31); MEAN CORPUSCULAR HGB CONC 34 g/dl (33.0-37.0); MEAN PLATELET VOLUME 9.8 fl (7.4-10.4); MONO # 0.7 K/mm3 (0.1-0.6); MONO % 6.9 % (1.7-9.3); PLATELET COUNT 309 K/mm3 (130-400); RED BLOOD COUNT 3.55 M/mm3 (4.10-5.30); REDCELL DISTRIBUTION WIDTH-CV 14.6 % (11.5-14.5)
[2021-09-14 22:53] LABS: HEMATOCRIT 31.3 % (37.0-47.0)
[2021-09-14 22:55] LABS: ALBUMIN 3.1 gm/dL (3.4-4.8); BILIRUBIN,TOTAL 0.3 mg/dL (0.2-1.2); CALCIUM 9.2 mg/dL (8.4-10.2); CREATININE, serum 1.9 mg/dL (0.57-1.11); POTASSIUM 4.2 mmol/L (3.5-4.5); TOTAL PROTEIN 6.9 gm/dL (6.2-8.1)
[2021-09-14 23:00] LABS: TROPONIN-I 0.011 ng/mL (0.00-0.033)
[2021-09-15] VITALS (7 sets, daily range): BP systolic 124–157; BP diastolic 41–64; PULSE 70–81; TEMP 97.3–98.7
[2021-09-15] MEDS ORDERED: GLUCOTROL XL5 MG/TAB PO (00:55)
[2021-09-15] MEDS ORDERED: LASIX 40MG TABL40 MG PO (00:57)
[2021-09-15] MEDS ORDERED: SEPTRA DS 8001 TAB PO (01:01)
--- NOTE | 2021-09-15 01:33 | NUR ---
PATIENT UP TO ROOM 352, ALERT AND ORIENTED. SLIDE BOARD OVER TO BED WITH 2 ASSISTS. PUREWICK APPLIED, PATIENT HAD CLEAR YELLOW URINE OUT. SKIN FOLDS ARE EXCORIATED AND REDDENED. BILATERAL LOWER EXTREMITIES ARE RED AND +2 PITTING EDEMA. R FA HAS SEVERAL PURPLE BRUISES. PATIENT STATES SHE HAS PAIN IN HER R SHOULDER WHEN MOVING BUT DENIES NEED FOR INTERVENTION AT THIS TIME. L AC IV PATENT AND FLUSHES WELL. PATIENT PROVIDED WITH WARM BROTH, ICE WATER, AND WARM BLANKETS. MED RX COMPLETED WITH PATIENT. ADMIN ASSESSMENTS COMPLETED. CALL LIGHT IN PLACE. DENIES ADDITIONAL NEEDS.
[2021-09-15 08:50] LABS: BASO # 0.1 K/mm3 (0.0-0.2); BASO % 0.6 % (0.0-2.0); EOS # 0.1 K/mm3 (0.0-0.7); EOS % 1.6 % (0.0-4.0); GRAN # 6.8 K/mm3 (1.4-6.5); GRAN % 79.6 % (42.2-75.2); LYMPH # 0.9 K/mm3 (1.2-3.4); LYMPH % 9.9 % (20.0-51.0); MEAN CELL VOLUME 87 fl (80.0-100.0); MEAN CORPUSCULAR HGB CONC 34 g/dl (33.0-37.0); MEAN PLATELET VOLUME 9.8 fl (7.4-10.4); MONO # 0.7 K/mm3 (0.1-0.6); MONO % 7.6 % (1.7-9.3); PLATELET COUNT 265 K/mm3 (130-400); REDCELL DISTRIBUTION WIDTH-CV 14.6 % (11.5-14.5)
[2021-09-15 08:57] LABS: HEMATOCRIT 28.8 % (37.0-47.0); HEMOGLOBIN 9.7 g/dl (12.5-16.0); MEAN CORPUSCULAR HEMOGLOBIN 29 pg (27-31)
[2021-09-15 09:04] LABS: CALCIUM 8.9 mg/dL (8.4-10.2); CREATININE, serum 1.76 mg/dL (0.57-1.11); POTASSIUM 3.9 mmol/L (3.5-4.5)
--- NOTE | 2021-09-15 13:25 | NUR ---
PT ORIENT AND ALERT X4, STATE THAT SHE HAD A CALM NIGHT
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
--- NOTE | 2021-09-15 17:11 | NUR ---
PT HAD A CALM DAY, RAISED COMPLAINTS OF PAIN ON THE RIGHT SHOULDER AND HEADACHE PRN MEDICATION GIVEN PRESCRIBED,DUE MEDICATION GIVEN NO ADVERSE REACTION NOTED, MOTRIN HELD DUE TO DOCUMENTED ALLERGIES.
--- NOTE | 2021-09-15 17:14 | NUR ---
PATIENT HAD A CALM DAY, DUE MEDICATIONS GIVEN SCHEDULED NO ADVERSE REACTION NOTED, RAISED COMPLAINS OF GENERAL BODY PAINS PRN MEDS GIVEN SCHEDULED.
--- NOTE | 2021-09-15 21:00 | NUR ---
Initial shift assessment done- alert/oriented, states pain /10 to right shoulder/neck, has soft collar on,, will give Roxicodone for pain as ordered, Has Purewick for urine-- pt states she wanted to get to use bathroom- could not sit up in bed- with 2 staff members could not get her to sit up-- put on bedpan , stated she needed to have bowel movement. call light in reach
[2021-09-16 03:34] VITALS: BP 148/64; PULSE 83; TEMP 98
--- NOTE | 2021-09-16 05:48 | NUR ---
Has been resting well for the past 4-6 hours, Has Purewick for urine output- VSS, no new requests.
[2021-09-16 07:00] VITALS: BP 164/71; PULSE 80; TEMP 98
--- NOTE | 2021-09-16 07:30 | NUR ---
Patient laying in bed, A&Ox4. VSS. IV CDI. Soft collar on neck. Denies pain and discomfort. Nursing staff repositioned patient for comfort. Purewick in place. Call light within reach. Bed alarm on
[2021-09-16 12:00] VITALS: BP 163/66; PULSE 85
[2021-09-16 16:00] VITALS: BP 140/50; PULSE 81
--- NOTE | 2021-09-16 18:28 | NUR ---
Patient repositioned for comfort. A&Ox2 with intermittent confusion. Nursing staff reorienting the patient as needed. VSS. IV CDI. Pain reported in RT shoulder, no pain medication requested. Purewick in place. Patient refusing to eat dinner, only requested a diet coke. Soft collar around neck intact. Call light within reach. Bed alarm on
--- NOTE | 2021-09-16 19:00 | NUR ---
Pt awake and laying in bed at this time. Denies any needs, requested to sleep without interruption. This RN told her she would have Vitals at midnight and 4am. She states that is fine. No other concerns. Assessment completed. Report rcvd from JOAQUIN Khan.
[2021-09-16 19:28] VITALS: BP 150/49; PULSE 76; TEMP 98
[2021-09-16 23:41] VITALS: BP 150/55; PULSE 76; TEMP 98.9
[2021-09-17 03:27] VITALS: BP 148/54; PULSE 79; TEMP 98.9
--- NOTE | 2021-09-17 07:00 | NUR ---
Pt had uneventful night. Slept very well, denied any needs throughout the night. Pt did state that she felt as though she was sleeping on a knot, so she took her gown off. This RN asked if she could help her put it back on and the patient said No. Pt pain managed. No other concerns. Report given to JOAQUIN Khan.
[2021-09-17 07:51] VITALS: BP 160/67; PULSE 79; TEMP 98
--- NOTE | 2021-09-17 08:00 | NUR ---
PT REPORTS PAIN TO LUE, RESTING IN BED, A&O X4, VSS, PIV C/D/I, CALL LIGHT IN REACH, BED ALARM ACTIVATED
[2021-09-17 11:42] VITALS: BP 134/52; PULSE 76; TEMP 97.6
--- NOTE | 2021-09-17 14:54 | NUR ---
Viola at [facility] advised they cannot take anyone this week as they have a covid outbreak. SW contacted Flavia at [facility] and they cannot accept as they have no AL or LTC beds available and patient may need this following SNF. Secondary Social Studies Teacher followed up with patient to discuss placement. SW advised patient that she is observation status so a SNF stay would be private pay. Patient states she cannot afford this and her only asset is her vehicle. Patient thinks she may have around $2,000 between checking and savings. Patient is agreeable to apply for Medicaid. SW called Jacoby, Financial Counselor and requested assistance with Medicaid application for placement. GABRIELE spoke with Steven at [facility] who advised he needs special permission to accept Medicaid pending so he has no answer at this time. SW followed up with patient and patient's granddaughter, Mary (ph#[phone]) who is at bedside. SW discussed patient being observation status and Medicaid pending placement. SW updated her on placement options. Mary does not want placement at [facility] or anywhere in [place]. Mary is an RN and would take patient home before these options. GABRIELE advised that if patient is not agreeable to go to an accepting facility, discharge will be home despite being an assist of two at this time. Mary verbalized understanding as patient is sleepy during this interaction. Mary stopped SW in the hallway and advised patient has declined the last six months and she saw this coming. Mary inquired about a palliative consult so GABRIELE contacted Hospitalist who put in the order. GABRIELE faxed additional referrals to [facility], [facility] [place], and [facility].
[2021-09-17 15:40] VITALS: BP 144/62; PULSE 77; TEMP 97.6
--- NOTE | 2021-09-17 15:44 | NUR ---
Met with patient at bedside. She states she cannot go home in her current state. She would love to get stronger and be able to take care of herself again but knows that isn't going to happen unless she gets neurosurger. She told me that she is on a waitlist to get in [place] with the neurosurgeon on [place] and that based on what he decides will help her make decisions. Kennysunni agreed to let me talk with her son and granddaughter as well. Current plan according to Rosy is to get to a nursing facility until she can see the neurosurgeon.
--- NOTE | 2021-09-17 15:49 | NUR ---
Call made to patient's granddaughter; left voicemail with my contact information
--- NOTE | 2021-09-17 16:16 | NUR ---
Rosa at [facility] advised they can possible accept if they can get a copy of insurance card, copy of covid vaccine card, copy of DPOA-HC, and copy of Medicaid application.
--- NOTE | 2021-09-17 16:32 | NUR ---
[facility] has no available beds at this time.
--- NOTE | 2021-09-17 19:06 | NUR ---
Patient had an uneventful day, spent most of the shift resting in bed. Had 2 loose BM's. Patient still has decreased PO intake. Soft collar on neck. Patient positioned for comfort. Purewick in place. Call light within reach. Bed alarm on
[2021-09-17 19:54] VITALS: BP 146/83; PULSE 77; TEMP 98
[2021-09-17 23:59] VITALS: BP 131/53; PULSE 77; TEMP 98.8
[2021-09-18 04:12] VITALS: BP 134/59; PULSE 68; TEMP 98.6
[2021-09-18 06:53] LABS: CALCIUM 8.9 mg/dL (8.4-10.2); CREATININE, serum 1.45 mg/dL (0.57-1.11); POTASSIUM 3.8 mmol/L (3.5-4.5)
[2021-09-18 07:07] LABS: TSH w REFLEX 0.378 uIU/mL (0.350-4.940)
--- NOTE | 2021-09-18 07:39 | NUR ---
DURING 7AM MEDICATION PASS IT WAS NOTED THAT THE PATIENT'S BLOOD SUGAR WAS 62. THIS WAS THE PATIENT'S FOOD HAD ARRIVED FROM THE KITCHEN WITH ORANGE JUICE. CONTACTED LESTER MONGE WHO SAID THERE IS NO NEED TO GIVE THE GLUCAGON LONG WE ENSURE THE BLOOD SUGAR COMES UP WITH HER BREAKFAST. RECHECK TO TAKE PLACE AT THIS TIME. NO OTHER CONCERNS. REPORT GIVEN TO JOAQUIN AMARO ALONG WITH JOAQUIN WILLIS WHO IS ALSO A PART OF HER CARES TODAY.
[2021-09-18 08:25] VITALS: BP 120/47; PULSE 78; TEMP 98.4
[2021-09-18 11:09] VITALS: BP 135/49; PULSE 69; TEMP 97.7
--- NOTE | 2021-09-18 11:41 | NUR ---
VSS, PT A&O TO PERSON/PLACE, PT RESTING IN BED, PT REPORTS PAIN TO RUE, PT BLE RED/WARM TO TOUCH, CALL LIGHT IN REACH, FALL PRECAUTIONS IN PLACE
[2021-09-18 16:15] VITALS: BP 154/75; PULSE 71; TEMP 97.8
--- NOTE | 2021-09-18 16:31 | NUR ---
Data Governance Consultant collaborated with Jacoby, Financial Counselor who completed Medicaid application. GABRIELE requested copy. GABRIELE contacted patient's daughter, Alison Allison (ph#[phone]) and requested DPOA-HC. Alison provided it to GABRIELE who then placed it in patient's chart. GABRIELE then faxed it to [facility] and [place]. GABRIELE met with patient to provide update and her first preference is [facility]. GABRIELE was contacted by Steven at [facility] who advised they can accept patient tomorrow. GBARIELE notified patient who is tearful and stated she is so relieved and happy to be placed in [place]. Patient advised she also spoke with Steven by phone. GABRIELE notified patient's daughter, Alison and granddaughter, Mary that [facility] can accept tomorrow. Both are in agreement. GABRIELE completed CARE assessment as patient is being placed Medicaid pending. GABRIELE provided copy of CARE to patient then faxed CARE to [facility]. GABRIELE placed CARE in chart. Discharge Plan: [facility] tomorrow
[2021-09-18 19:26] VITALS: BP 139/53; PULSE 69; TEMP 97.7
[2021-09-19 00:08] VITALS: BP 142/67; PULSE 67; TEMP 97.9
[2021-09-19 03:53] VITALS: BP 147/80; PULSE 67; TEMP 98.7
[2021-09-19 06:40] LABS: BASO % 0.2 % (0.0-2.0); EOS # 0.1 K/mm3 (0.0-0.7); EOS % 0.8 % (0.0-4.0); GRAN # 6.7 K/mm3 (1.4-6.5); GRAN % 80.8 % (42.2-75.2); HEMOGLOBIN 10.2 g/dl (12.5-16.0); LYMPH # 0.9 K/mm3 (1.2-3.4); LYMPH % 11.3 % (20.0-51.0); MEAN CELL VOLUME 88 fl (80.0-100.0); MEAN CORPUSCULAR HEMOGLOBIN 29 pg (27-31); MEAN CORPUSCULAR HGB CONC 33 g/dl (33.0-37.0); MEAN PLATELET VOLUME 10.4 fl (7.4-10.4); MONO # 0.5 K/mm3 (0.1-0.6); MONO % 5.9 % (1.7-9.3); PLATELET COUNT 319 K/mm3 (130-400); RED BLOOD COUNT 3.49 M/mm3 (4.10-5.30)
[2021-09-19 06:45] LABS: HEMATOCRIT 30.8 % (37.0-47.0)
[2021-09-19 06:57] LABS: CALCIUM 8.9 mg/dL (8.4-10.2); CREATININE, serum 1.36 mg/dL (0.57-1.11)
--- NOTE | 2021-09-19 07:19 | NUR ---
PT A&O X4, PT ABLE TO MAKE NEEDS KNOWN, PT RESTING IN BED, VSS, CALL LIGHT WITHIN REACH
[2021-09-19 07:27] VITALS: BP 170/64; PULSE 70; TEMP 98.1
--- NOTE | 2021-09-19 07:31 | NUR ---
PT'S BLOOD GLUCOSE 64 PER POC CHECK, ORANGE JUICE GIVEN
[2021-09-19] MEDS ORDERED: COREG12.5 MG PO (08:43)
[2021-09-19] MEDS ORDERED: GLUCOPHAGE500 MG/TAB PO (09:20)
[2021-09-19] MEDS ORDERED: NOVOLOG 100U100 U/M1 SQ (09:21)
[2021-09-19 12:03] VITALS: BP 129/55
--- NOTE | 2021-09-19 12:36 | NUR ---
pt dismissed today to via [facility], pt unable to locate her glasses prior to discharge, pt states "I had them here", charge nurse notified
--- NOTE | 2021-09-19 13:01 | NUR ---
this rn attempted to call report to [facility] with no answer.
--- NOTE | 2021-09-19 13:41 | NUR ---
Nuclear Operations Specialist attended clinical rounds with the team and patient to discharge to [facility] today. SW contacted Shirley and set transport time for 1200. GABRIELE provided transport time to patient, patient's daughter Alison, and granddaughter Mary. GABRIELE faxed discharge orders, covid results, and CARE assessment to [facility]. GABRIELE also requested copy of Medicaid application from Jacoby, Financial Counselor, to be provided to Shirley once received. Discharge Plan: [facility] with Part B PT\OT
== END 2021-09-19 13:02 ==
LOC: COL.ER 21:50 → MEDICAL 23:20
PROVIDERS: Emergency Medicine; Nurse Practitioner; Student in an Organized Health Care Education/Training Program; ADMIT Internal Medicine
DX: R53.1 Weakness (principal); M48.02 Spinal stenosis, cervical region; N39.0 Urinary tract infection, site not specified; S12.000A Unspecified displaced fracture of first cervical vertebra, initial encounter for closed fracture; M17.0 Bilateral primary osteoarthritis of knee; E11.22 Type 2 diabetes mellitus with diabetic chronic kidney disease; I12.9 Hypertensive chronic kidney disease with stage 1 through stage 4 chronic kidney disease, or unspecified chronic kidney disease; N18.9 Chronic kidney disease, unspecified; R60.0 Localized edema; J44.9 Chronic obstructive pulmonary disease, unspecified; E03.9 Hypothyroidism, unspecified; K21.9 Gastro-esophageal reflux disease without esophagitis; G25.81 Restless legs syndrome; I08.1 Rheumatic disorders of both mitral and tricuspid valves
CPT/HCPCS: 99232-AI; 99233-AI; G0378; J1644; J1815; J2270; J7040

== ENCOUNTER → 2021-09-28 | Outpatient (CLI) | payer MEDICARE, OTHER ==
[2021-09-28 13:16] LABS: MEAN CELL VOLUME 89 fl (80.0-100.0); MEAN CORPUSCULAR HGB CONC 32 g/dl (33.0-37.0); MEAN PLATELET VOLUME 9.3 fl (7.4-10.4); PLATELET COUNT 425 K/mm3 (130-400); RED BLOOD COUNT 3.13 M/mm3 (4.10-5.30); REDCELL DISTRIBUTION WIDTH-CV 14.5 % (11.5-14.5)
[2021-09-28 13:17] LABS: HEMATOCRIT 27.9 % (37.0-47.0); MEAN CORPUSCULAR HEMOGLOBIN 29 pg (27-31)
[2021-09-28 13:18] LABS: ALBUMIN 2.3 gm/dL (3.4-4.8); BILIRUBIN,TOTAL 0.2 mg/dL (0.2-1.2); CALCIUM 8.4 mg/dL (8.4-10.2); CREATININE, serum 1.35 mg/dL (0.57-1.11); POTASSIUM 3.6 mmol/L (3.5-4.5); THYROID STIMULATING HORMONE 0.733 uIU/mL (0.350-4.940)
[2021-09-28 13:20] LABS: ANISOCYTOSIS 1+; BAND 2 % (0-10); EOSINOPHIL 1 % (0-4); HYPOCHROMIA 1+; LYMPHOCYTE 14 % (20.0-51.0); METAMYELOCYTE 1 % (0-0); NEUTROPHILS 81 % (42.0-75.2); OVALOCYTES 1+; PLATELET ESTIMATE INCREASED (NORMAL)
== END ==
LOC: ZLAB.STJ 12:59
PROVIDERS: Internal Medicine
DX: M43.22 Fusion of spine, cervical region (principal); N18.31 Chronic kidney disease, stage 3a; E11.40 Type 2 diabetes mellitus with diabetic neuropathy, unspecified

== ENCOUNTER → 2021-10-09 | Outpatient (CLI) | payer MEDICARE, OTHER | LOC: COL.RAD 10:33 | DX: R04.2 Hemoptysis (principal) ==

== ENCOUNTER 2021-10-31 14:09 | Emergency (ER) | payer MEDICARE, OTHER ==
[~2021-10-31] VITALS: Ht 165.1 cm; Wt 77.7 kg
[2021-10-31 14:27] VITALS: TEMP 97.9
[2021-10-31 15:11] VITALS: BP 125/58; PULSE 82
== END 2021-10-31 15:11 | disposition home or self-care (01) ==
LOC: COL.ER 14:09
DX: M25.511 Pain in right shoulder (principal)

== ENCOUNTER 2021-12-27 20:49 | Inpatient (IN) | payer MEDICARE, OTHER ==
[~2021-12-27] VITALS: Ht 165.1 cm; Wt 88.6 kg
[2021-12-27 21:41] LABS: BASO # 0.1 K/mm3 (0.0-0.2); BASO % 0.7 % (0.0-2.0); EOS # 0.2 K/mm3 (0.0-0.7); GRAN # 5.8 K/mm3 (1.4-6.5); GRAN % 78.7 % (42.2-75.2); LYMPH # 0.9 K/mm3 (1.2-3.4); LYMPH % 12.1 % (20.0-51.0); MEAN CELL VOLUME 92 fl (80.0-100.0); MEAN CORPUSCULAR HEMOGLOBIN 29 pg (27-31); MEAN CORPUSCULAR HGB CONC 31 g/dl (33.0-37.0); MEAN PLATELET VOLUME 10.3 fl (7.4-10.4); MONO # 0.4 K/mm3 (0.1-0.6); MONO % 5.7 % (1.7-9.3); PLATELET COUNT 238 K/mm3 (130-400); RED BLOOD COUNT 3.46 M/mm3 (4.10-5.30); REDCELL DISTRIBUTION WIDTH-CV 15.9 % (11.5-14.5)
[2021-12-27 21:43] LABS: HEMATOCRIT 31.9 % (37.0-47.0)
[2021-12-27 21:50] LABS: COLLECTION METHOD CLEAN CATCH
[2021-12-27 21:55] LABS: URINE APPEARANCE Cloudy (CLEAR/HAZY); URINE COLOR Yellow (YELLOW); URINE GLUCOSE Negative (NEGATIVE); URINE KETONE Negative (NEGATIVE); URINE PROTEIN(semi-quant) 1+ (NEGATIVE)
[2021-12-27 21:56] LABS: URINE BLOOD 1+ (NEGATIVE); URINE NITRATE Negative (NEGATIVE); URINE UROBILINOGEN 0.2 E.U/dL (0.2-1.0)
[2021-12-27 21:59] LABS: ALANINE AMINOTRANSFERASE 23 U/L (0-55); ALBUMIN 3.4 gm/dL (3.4-4.8); ALKALINE PHOSPHATASE 120 U/L (40-150); ANION GAP 11 mmol/L (7-16); AST,SGOT 16 U/L (5-34); BILIRUBIN,TOTAL 0.3 mg/dL (0.2-1.2); BLOOD UREA NITROGEN 59 mg/dL (10-20); CALCIUM 9.5 mg/dL (8.4-10.2); CARBON DIOXIDE 21 mmol/L (23-31); CHLORIDE 110 mmol/L (98-107); CREATININE, serum 1.62 mg/dL (0.57-1.11); GLUCOSE 130 mg/dL (70-99); POTASSIUM 4.7 mmol/L (3.5-4.5); SODIUM 142 mmol/L (136-145); TOTAL PROTEIN 6.9 gm/dL (6.2-8.1)
[2021-12-27 22:07] LABS: TROPONIN-I < 0.010 ng/mL (0.00-0.033)
[2021-12-27 22:20] LABS: BUDDING YEAST Present (NOT PRESENT); MUCOUS Present (NOT PRESENT); SQUAMOUS EPITHELIAL 0-2 /hpf (0-10); URINE BACTERIA Occasional /hpf (NONE SEEN)
[2021-12-27 23:01] LABS: PROTHROMBIN TIME 12.4 SECONDS (9.7-12.8)
[2021-12-27 23:02] LABS: INR 1.1 (0.8-3.0)
[2021-12-28] VITALS (7 sets, daily range): BP systolic 108–173; BP diastolic 60–111; PULSE 62–101; TEMP 97.4–98.2
[2021-12-28 00:16] LABS: C-REACTIVE PROTEIN 1.27 mg/dL (0.00-0.50); MAGNESIUM 1.3 mg/dL (1.6-2.6); PHOSPHOROUS 2.4 mg/dL (2.3-4.7)
[2021-12-28 00:38] LABS: THYROID STIMULATING HORMONE 0.367 uIU/mL (0.350-4.940)
[2021-12-28] MEDS ORDERED: EUTHYROX137 MCG PO (02:18)
[2021-12-28] MEDS ORDERED: CLARITIN 1010 MG/TAB PO (02:20)
[2021-12-28] MEDS ORDERED: DEMADEX 20MG20 M1 PO (02:21)
[2021-12-28] MEDS ORDERED: FARXIGA5 PO (02:23)
[2021-12-28] MEDS ORDERED: LEXAPRO 5MG5 MG PO (02:23)
[2021-12-28] MEDS ORDERED: LEVEMIR SQ (02:25)
[2021-12-28] MEDS ORDERED: JANUVIA 100MG100 MG PO (02:28)
[2021-12-28] MEDS ORDERED: ROXICODONE 55 MG/TAB PO (02:29)
[2021-12-28] MEDS ORDERED: VOLTAREN GEL 1%1 TU TP (02:30)
[2021-12-28] MEDS ORDERED: SALINE 45 ML45 ML NS (02:31)
[2021-12-28] MEDS ORDERED: NOVLOG SQ (02:34)
[2021-12-28] MEDS ORDERED: ROBITUSSIN DM 105 ML PO (02:39)
[2021-12-28] MEDS ORDERED: IRON TABLETS325 MG PO (02:43)
[2021-12-28] MEDS ORDERED: 00186-0370-20 IH (02:44)
[2021-12-28] MEDS ORDERED: TYLENOL 500MG500 MG PO (02:53)
[2021-12-28] MEDS ORDERED: HALLS9.1 MG PO (04:10)
[2021-12-28 13:06] LABS: CALCIUM 8.7 mg/dL (8.4-10.2); CHOLESTEROL RISK RATIO 2.8; CREATININE, serum 1.52 mg/dL (0.57-1.11); MAGNESIUM 1.3 mg/dL (1.6-2.6); POTASSIUM 3.9 mmol/L (3.5-4.5)
[2021-12-28 13:13] LABS: TROPONIN-I 0.031 ng/mL (0.00-0.033)
[2021-12-29 03:23] VITALS: BP 129/61; PULSE 83; TEMP 97.5
[2021-12-29 07:20] LABS: CALCIUM 8.8 mg/dL (8.4-10.2); CREATININE, serum 1.58 mg/dL (0.57-1.11)
[2021-12-29 07:34] VITALS: BP 123/57; PULSE 82; TEMP 98
[2021-12-29 12:01] VITALS: BP 142/61; PULSE 86; TEMP 97.6
[2021-12-29 16:00] VITALS: BP 103/61; PULSE 69; TEMP 98.6
[2021-12-29 21:08] VITALS: BP 136/68; PULSE 85; TEMP 97.9
[2021-12-30 00:30] VITALS: BP 127/64; PULSE 79; TEMP 97.4
[2021-12-30 04:02] VITALS: BP 135/71; PULSE 79; TEMP 98
[2021-12-30 06:53] LABS: CALCIUM 8.6 mg/dL (8.4-10.2); CREATININE, serum 1.55 mg/dL (0.57-1.11); POTASSIUM 3.9 mmol/L (3.5-4.5)
[2021-12-30 08:00] VITALS: BP 117/69; PULSE 81; TEMP 98.2
[2021-12-30 12:00] VITALS: BP 120/81; PULSE 61; TEMP 97.8
[2021-12-30 16:00] VITALS: BP 143/70; PULSE 82; TEMP 97.7
[2021-12-30 21:01] VITALS: BP 126/61; PULSE 68; TEMP 98.1
[2021-12-31 00:07] VITALS: BP 130/60; PULSE 81; TEMP 97.5
[2021-12-31 04:00] VITALS: BP 149/72; PULSE 86; TEMP 97.6
[2021-12-31 06:41] LABS: BASO % 0.1 % (0.0-2.0); GRAN # 6.1 K/mm3 (1.4-6.5); LYMPH # 0.7 K/mm3 (1.2-3.4); LYMPH % 9.4 % (20.0-51.0); MEAN CELL VOLUME 88 fl (80.0-100.0); MEAN CORPUSCULAR HEMOGLOBIN 29 pg (27-31); MEAN CORPUSCULAR HGB CONC 33 g/dl (33.0-37.0); MEAN PLATELET VOLUME 10.1 fl (7.4-10.4); MONO # 0.4 K/mm3 (0.1-0.6); MONO % 5.7 % (1.7-9.3); PLATELET COUNT 223 K/mm3 (130-400); RED BLOOD COUNT 3.46 M/mm3 (4.10-5.30); REDCELL DISTRIBUTION WIDTH-CV 14.9 % (11.5-14.5)
[2021-12-31 06:45] LABS: HEMATOCRIT 30.5 % (37.0-47.0)
[2021-12-31 07:05] LABS: CALCIUM 8.4 mg/dL (8.4-10.2); CREATININE, serum 1.45 mg/dL (0.57-1.11); MAGNESIUM 1.9 mg/dL (1.6-2.6); POTASSIUM 4.2 mmol/L (3.5-4.5)
[2021-12-31] MEDS ORDERED: ELIQUIS 2.5 PO (07:30)
[2021-12-31 08:01] VITALS: BP 134/58; PULSE 76; TEMP 98.3
[2021-12-31] MEDS ORDERED: CARDIZEM CD 18180 MG PO (08:22)
[2021-12-31] MEDS ORDERED: LASIX 40MG TABL40 MG PO (08:24)
[2021-12-31] MEDS ORDERED: CEFTIN 250250 MG/TAB PO (08:25)
== END 2021-12-31 11:21 | DRG 291 ==
LOC: COL.ER 20:49 → MEDICAL 22:11
PROVIDERS: Internal Medicine; Nurse Practitioner Family; Physician Assistant; ADMIT Internal Medicine
DX: I13.0 Hypertensive heart and chronic kidney disease with heart failure and stage 1 through stage 4 chronic kidney disease, or unspecified chronic kidney disease (principal); J96.01 Acute respiratory failure with hypoxia; E87.20 Acidosis, unspecified; N39.0 Urinary tract infection, site not specified; N17.9 Acute kidney failure, unspecified; I48.20 Chronic atrial fibrillation, unspecified; J44.9 Chronic obstructive pulmonary disease, unspecified; Z66 Do not resuscitate; E03.9 Hypothyroidism, unspecified; I27.20 Pulmonary hypertension, unspecified; E11.22 Type 2 diabetes mellitus with diabetic chronic kidney disease; K21.9 Gastro-esophageal reflux disease without esophagitis; E87.5 Hyperkalemia; G25.81 Restless legs syndrome; M17.0 Bilateral primary osteoarthritis of knee; E83.42 Hypomagnesemia; G89.29 Other chronic pain; D64.9 Anemia, unspecified; I08.1 Rheumatic disorders of both mitral and tricuspid valves; B96.20 Unspecified Escherichia coli [E. coli] as the cause of diseases classified elsewhere; I50.9 Heart failure, unspecified; G47.33 Obstructive sleep apnea (adult) (pediatric); R33.9 Retention of urine, unspecified; N18.30 Chronic kidney disease, stage 3 unspecified; Z79.890 Hormone replacement therapy; Z79.4 Long term (current) use of insulin; Z88.6 Allergy status to analgesic agent; Z88.1 Allergy status to other antibiotic agents; Z90.710 Acquired absence of both cervix and uterus; Z88.8 Allergy status to other drugs, medicaments and biological substances; Z23 Encounter for immunization
CPT/HCPCS: J0696; J1644; J1815; J1940; J3475; J7512